=== PATIENT | male | born 1955 | race Caucasian/White ===

== ENCOUNTER 2020-05-26 14:04 | Inpatient (IN) ==
[2020-05-26 14:23] VITALS: BMI 25.8
[2020-05-26] MEDS ORDERED: DECADRON INJ PRESERVATIVE-FREE IVP ONE (14:26)
[2020-05-26] MEDS ORDERED: PROVENTIL NEB TX 0.083% 2.5MG/ 3ML NEB ONE (14:27)
[2020-05-26] MEDS ORDERED: TYLENOL 500 MG TAB EXTRA STRENGTH PO ONE ×2 (14:33→14:34)
[2020-05-26] MEDS ORDERED: DECADRON INJ ONE (14:34)
[2020-05-26] MEDS ORDERED: PROVENTIL NEB TX 0.083% 2.5MG/ 3ML ONE (14:38)
[2020-05-26 14:47] LABS: ABG BASE EXCESS 6.9 mmol/L (-2.0-2.0)
[2020-05-26 14:48] LABS: ABG ALLEN TEST POS; ABG HCO3 30.3 mmol/L (22-26)
--- NOTE | 2020-05-26 14:48 | DR.SOBA ---
HPI Time Seen Time Seen by Provider: 05/26/20 14:26 Primary Care Physician Primary Care Physician: FRANCHESCA HPI Comment HPI Comment: Patient presents from home with worsening shortness of breath. recently +COVID. Patient tested a few days ago, but was asymptomatic at the time. No result known at this time. Notes that since Friday, he has had worsen ing sob, fatigue. Notes fever to 102 at home, not responsive to Tylenol or Motrin. Decreased po intake. Notes itchy rash over body. Had empiric COVID treatment with Zpack (last dose yesterday), zinc, and Vit C. Complaints Chief Complaint:: PT. BECAME SYMPTOMATIC WITH COVID LIKE SYMTPOMS ON 05/15/20. PT. WAS SEEN IN THE ER ON 05/21/20 FOR WORSENING COVID SYMTPOMS. PT. WAS PRESCRIVED A Z-CARMEN, VITAMIN C AND ZINC. PT. IS STILL NOT FEELING BETTER. PT. C/O PERSISTENT COUGH, SHORTNESS OF BREATH, RASH TO BODY, FEVER, FATIGUE, DECREASED APPETITE. COVID-19 Coronavirus risk:travel/contact w/high risk person: Yes Has patient experienced Coronavirus symptoms: Yes Coronavirus symptoms experienced: Fever, Coughing and Shortness of Breath Source History Provided: Patient and Significant Other Mode of Arrival Mode of Arrival: Wheelchair Timing Onset of Chief Complaint: 05/15/20 PMH PMH Past Medical History: Yes Past Medical History: Diabetes, Hypertension and Hypothyroidism Past Surgical History: Yes Surgical History: Abdominal Surgery Family History History of Family Medical Conditions: Yes Family Medical History: Cancer Social History Does patient currently use any type of tobacco product: No Have you used tobacco products in the last 12 months: No Type of Tobacco Use: None Does any household member use tobacco: No Alcohol Use: None Do you use any recreational Drugs:: No Lives With: Significant Other Lives Where: Home Travel Risk Coronavirus risk:travel/contact w/high risk person: Yes Has patient experienced Coronavirus symptoms: Yes Coronavirus symptoms experienced: Fever, Coughing and Shortness of Breath Infectious screening In the last 2 months have you had wt loss of >10#?: NO Have you had fever, night sweats or hemotysis?: No Have you traveled outside the country in the last 6 months?: No Isolation: Droplet ROS Review of Systems Constitutional: See HPI, Chills, Fever, Malaise and Fatigue Respiratoy: Dry Cough Integumentary: See HPI and Rash All Other Systems: Reviewed and Negative PE Vital Signs Vitals: Temperature 99.7 F Pulse Rate 96 Respiratory Rate 21 Blood Pressure 117/61 O2 Sat by Pulse Oximetry 92 General Limitations: No Limitations General Appearance: Alert and In No Apparent Distress Head Head Exam: Normal Inspection, Atraumatic and Normocephalic Eyes Eye exam: Normal Appearance and EOMI Neck Neck Exam: Trachea Midline Chest Chest Inspection: Normal Inspection and Symmetric Chest Wall Rise Respiratory Respiratory Exam: Normal Lung Sounds Bilat Respiratory Exam: Bilateral: Clear to Auscultation Cardiovascular Cardiovascular Exam: Normal Rhythm, Tachycardia and Normal Heart Sounds Neurologic Neurological Exam: Alert and Oriented X3 Psychiatric Psychiatric Exam: Normal Affect and Normal Mood Skin Skin Exam: Rash COURSE Consultation Called: 17:10 Call Returned: 17:15 Consultation Comments: Spoke with Dr. Swan who accepts patient for admission ROR Labs Reviewed Result Diagrams: 05/26/20 14:25 05/26/20 14:25 Laboratory: WBC 8.2 X10^3/uL (3.6-10.0) 05/26/20 14:25 RBC 4.87 X10^6/uL (4.7-6.0) 05/26/20 14:25 Hgb 14.6 g/dL (13.5-18.0) 05/26/20 14:25 Hct 42.4 % (42.0-54.0) 05/26/20 14:25 MCV 87.0 fL (80.0-100.0) 05/26/20 14:25 MCH 29.9 pg (27.0-34.0) 05/26/20 14:25 MCHC 34.3 g/dL (33.0-35.0) 05/26/20 14:25 RDW 12.8 % (11.6-16.5) 05/26/20 14:25 Plt Count 211 X10^3/uL (150.0-450.0) 05/26/20 14:25 MPV 8.6 fL (7.4-11.0) 05/26/20 14:25 Neut % (Auto) 85.5 % (42.0-75.0) H 05/26/20 14:25 Lymph % (Auto) 8.7 % (21.0-51.0) L 05/26/20 14:25 [place] % (Auto) 5.5 % (0.0-13.0) 05/26/20 14:25 Eos % (Auto) 0.0 % (0.9-2.9) L 05/26/20 14:25 Baso % (Auto) 0.3 % (0.2-1.0) 05/26/20 14:25 Neut # (Auto) 7.0 x10^3/uL (2.2-4.8) H 05/26/20 14:25 Lymph # (Auto) 0.7 X10^3/uL (1.3-2.9) L 05/26/20 14:25 [place] # (Auto) 0.4 x10^3/uL (0.3-0.8) 05/26/20 14:25 Eos # (Auto) 0.0 x10^3/uL (0.0-0.2) 05/26/20 14:25 Baso # (Auto) 0.0 X10^3/uL (0.0-0.1) 05/26/20 14:25 Absolute Nucleated RBC 0.1 /100WBC 05/26/20 14:25 D-Dimer 2.74 ug/ml (0.0-0.57) H* 05/26/20 14:25 Sample Site Rr 05/26/20 14:40 ABG pH 7.510 (7.35-7.45) H 05/26/20 14:40 ABG pCO2 38.0 mmHg (35.0-45.0) 05/26/20 14:40 ABG pO2 44.0 mmHg (80.0-100.0) L* 05/26/20 14:40 ABG HCO3 30.3 mmol/L (22-26) H* 05/26/20 14:40 ABG O2 Saturation 85.0 % (90-100) L 05/26/20 14:40 ABG Base Excess 6.9 mmol/L (-2.0-2.0) H 05/26/20 14:40 Emerson Test Pos 05/26/20 14:40 A-a Gradient 58.0 mmHg 05/26/20 14:40 FiO2 21.0 05/26/20 14:40 Blood Gas Comments Pt ansley well cdn 05/26/20 14:40 Sodium 140 mmol/L (136-145) 05/26/20 14:25 Corrected Sodium 143 mmol/L (136-145) 05/26/20 14:25 Potassium 3.9 mmol/L (3.5-5.1) 05/26/20 14:25 Chloride 100 mmol/L (98-107) 05/26/20 14:25 Carbon Dioxide 31.3 mmol/L (21-32) 05/26/20 14:25 BUN 21 mg/dL (7-18) H 05/26/20 14:25 Creatinine 1.50 mg/dL (0.70-1.30) H 05/26/20 14:25 Est GFR (MDRD) Af Amer > 60 (>60) 05/26/20 14:25 Est GFR (MDRD) Non-Af 50 (>60) L 05/26/20 14:25 Glucose 240 mg/dL (65-99) H 05/26/20 14:25 Calcium 8.8 mg/dL (8.5-10.1) 05/26/20 14:25 Corrected Calcium 9.4 mg/dL (8.5-10.1) 05/26/20 14:25 Magnesium 2.1 mg/dL (1.7-2.9) 05/26/20 14:25 Total Bilirubin 0.60 mg/dL (0.2-1.0) 05/26/20 14:25 AST 64 Units/L (15-37) H 05/26/20 14:25 ALT 43 Units/L (12-78) 05/26/20 14:25 Alkaline Phosphatase 46 Units/L (46-116) 05/26/20 14:25 Creatine Kinase 1313 Units/L (39-308) H 05/26/20 14:25 CK-MB (CK-2) < 1.0 ng/mL (0-4.0) 05/26/20 14:25 CK/CKMB % Calc 0.1 % (<4) 05/26/20 14:25 Troponin I 0.03 ng/mL (0-1.5) 05/26/20 14:25 Total Protein 7.4 g/dL (6.4-8.2) 05/26/20 14:25 Albumin 3.2 g/dL (3.4-5.0) L 05/26/20 14:25 Globulin 4.2 g/dL (2.5-4.5) 05/26/20 14:25 Albumin/Globulin Ratio 0.8 Ratio (1.1-2.1) L 05/26/20 14:25 SARS-CoV-2 (PCR) Positive (NEGATIVE) A 05/26/20 14:32 XRAY X-ray Results: HISTORY COVID-19 positive, shortness of breath STUDY CTA OF THE CHEST WITH CONTRAST COMPARISON Portable chest x-ray of same day TECHNIQUE Axial CT was performed from the thoracic inlet to the upper abdomen with an arterial phase IV contrast bolus. The axial sequences are reconstructed with multiplaner reformats;volume rendered MIP and/or 3D reconstruction was generated from the original axial dataset. FINDINGS There is no evidence of pulmonary thromboembolism or acute aortic pathology. The heart size is normal. Central airway is patent. There are no pathologically enlarged central mediastinal lymph nodes. Shotty, reactive bilateral hilar lymph nodes are observed. A small hiatal hernia is demonstrated. There is no evidence of a pericardial effusion. There is been interval development of patchy, multifocal ground-glass attenuation along the bronchovascular distribution and within peripheral locations of the right and left lung. This symmetrically affects the right and left lung. There are also more organized or dense areas of consolidation identified within the dependent lung bases. Subpleural sparing is evident. There is no pleural fluid collection identified. There is generalized hepatic steatosis associated with hepatomegaly. The spleen is average size. Surgical clips are seen near the splenic hilum. No free fluid is seen within the upper abdomen. Evaluation of the osseous structures reveals no aggressive bony lesions or acute osseous abnormalities. IMPRESSION Multifocal bilateral pulmonary infiltrates suggestive of an atypical pneumonia pattern. This may be associated with a nonspecific viral or atypical organism infection, including COVID-19 in the appropriate clinical setting. No pulmonary thromboembolism or acute aortic pathology Small hiatal hernia Hepatomegaly with generalized hepatic steatosis. Radiation dose reduction was achieved through individualized adjustment of kVP and/or mA, through adaptive statistical iterative reconstruction, and/or through automated tube current modulation. Electronically signed by: FEILPE BRUMFIELD (May 26, 2020 16:31:07) EKG [place]: LAD Rhythm: ST (rate 101) ST: Normal Opioid Opioid Risk Tool Age (Claude box if 16-45): No History of Preadolescent Sexual Abuse: No Total: 0 Total Score Risk Category: Low Risk Copyright: Cooper QUINN predicting aberrant behaviors Diagnosis Discharge Problem: Pneumonia due to 2019 novel coronavirus
[2020-05-26 14:59] LABS: BASOPHILS % (AUTO) 0.3 % (0.2-1.0); HEMATOCRIT 42.4 % (42.0-54.0); HEMOGLOBIN 14.6 g/dL (13.5-18.0); LYMPHOCYTES # (AUTO) 0.7 X10^3/uL (1.3-2.9); LYMPHOCYTES % (AUTO) 8.7 % (21.0-51.0); MEAN CORPUSCULAR HEMOGLOBIN 29.9 pg (27.0-34.0); MEAN CORPUSCULAR HGB CONC 34.3 g/dL (33.0-35.0); MEAN PLATELET VOLUME 8.6 fL (7.4-11.0); MONOCYTES # (AUTO) 0.4 x10^3/uL (0.3-0.8); MONOCYTES % (AUTO) 5.5 % (0.0-13.0); NEUTROPHILS % (AUTO) 85.5 % (42.0-75.0); PLATELET COUNT 211 X10^3/uL (150.0-450.0); RED BLOOD COUNT 4.87 X10^6/uL (4.7-6.0); RED CELL DISTRIBUTION WIDTH 12.8 % (11.6-16.5); WHITE BLOOD COUNT 8.2 X10^3/uL (3.6-10.0)
[2020-05-26 15:24] LABS: BLOOD UREA NITROGEN 21 mg/dL (7-18); CALCIUM 8.8 mg/dL (8.5-10.1); CARBON DIOXIDE 31.3 mmol/L (21-32); CHLORIDE 100 mmol/L (98-107); COR NA(FOR HYPERGLY) 143 mmol/L (136-145); SODIUM 140 mmol/L (136-145); TROPONIN I 0.03 ng/mL (0-1.5); eGFR NON BLACK RACES 50 (>60)
[2020-05-26 15:25] LABS: ALANINE AMINOTRANSFERASE 43 Units/L (12-78); ALBUMIN 3.2 g/dL (3.4-5.0); ALKALINE PHOSPHATASE 46 Units/L (46-116); ASPARTATE AMINO TRANSFERASE 64 Units/L (15-37); COR CA(FOR HYPOALB) 9.4 mg/dL (8.5-10.1); CREATINE KINASE MB < 1.0 ng/mL (0-4.0); MAGNESIUM 2.1 mg/dL (1.7-2.9); TOTAL PROTEIN 7.4 g/dL (6.4-8.2)
[2020-05-26 15:26] LABS: CKMB % 0.1 % (<4)
[2020-05-26 15:27] LABS: CREATINE KINASE 1313 Units/L (39-308)
--- NOTE | 2020-05-26 15:35 | RAD ---
HISTORYSOBSTUDYCHEST, 1 VIEWCOMPARISONNovember 2019TECHNIQUEPortable chest x-rayFINDINGSThere is been interval development of multifocal patchy peribronchial and peripheral infiltrates suggestive of an atypical pneumonia pattern. Low lung volumes are observed. The pleural spaces remain grossly clear. The heart size is stable. A small hiatal hernia is noted.IMPRESSIONEvolving multifocal bilateral pulmonary infiltrates suggestive of an atypical pneumonia patternSmall hiatal herniaElectronically signed by: FELIPE BRUMFIELD (May 26, 2020 15:34:16)
[2020-05-26] MEDS ORDERED: NS 500 ML IV 500 ML IV ONE (15:44)
--- NOTE | 2020-05-26 16:32 | CT ---
HISTORYCOVID-19 positive, shortness of breathSTUDYCTA OF THE CHEST WITH CONTRASTCOMPARISONPortable chest x-ray of same dayTECHNIQUEAxial CT was performed from the thoracic inlet to the upper abdomen with an arterial phase IV contrast bolus. The axial sequences are reconstructed with multiplaner reformats;volume rendered MIP and/or 3D reconstruction was generated from the original axial dataset.FINDINGSThere is no evidence of pulmonary thromboembolism or acute aortic pathology. The heart size is normal. Central airway is patent. There are no pathologically enlarged central mediastinal lymph nodes. Shotty, reactive bilateral hilar lymph nodes are observed. A small hiatal hernia is demonstrated. There is no evidence of a pericardial effusion. There is been interval development of patchy, multifocal ground-glass attenuation along the bronchovascular distribution and within peripheral locations of the right and left lung. This symmetrically affects the right and left lung. There are also more organized or dense areas of consolidation identified within the dependent lung bases. Subpleural sparing is evident. There is no pleural fluid collection identified.There is generalized hepatic steatosis associated with hepatomegaly. The spleen is average size. Surgical clips are seen near the splenic hilum. No free fluid is seen within the upper abdomen.Evaluation of the osseous structures reveals no aggressive bony lesions or acute osseous abnormalities.IMPRESSIONMultifocal bilateral pulmonary infiltrates suggestive of an atypical pneumonia pattern. This may be associated with a nonspecific viral or atypical organism infection, including COVID-19 in the appropriate clinical setting.No pulmonary thromboembolism or acute aortic pathologySmall hiatal herniaHepatomegaly with generalized hepatic steatosis.Radiation dose reduction was achieved through individualized adjustment of kVP and/or mA, through adaptive statistical iterative reconstruction, and/or through automated tube current modulation.Electronically signed by: FELIPE BRUMFIELD (May 26, 2020 16:31:07)
[2020-05-26 17:47] LABS: BASOPHILS % (AUTO) 0.1 % (0.2-1.0); HEMATOCRIT 38.6 % (42.0-54.0); HEMOGLOBIN 13.1 g/dL (13.5-18.0); LYMPHOCYTES # (AUTO) 0.4 X10^3/uL (1.3-2.9); LYMPHOCYTES % (AUTO) 5.1 % (21.0-51.0); MEAN CORPUSCULAR HEMOGLOBIN 29.5 pg (27.0-34.0); MEAN CORPUSCULAR HGB CONC 33.9 g/dL (33.0-35.0); MEAN PLATELET VOLUME 8.2 fL (7.4-11.0); MONOCYTES # (AUTO) 0.3 x10^3/uL (0.3-0.8); NEUTROPHILS # (AUTO) 6.5 x10^3/uL (2.2-4.8); NEUTROPHILS % (AUTO) 90.8 % (42.0-75.0); PLATELET COUNT 203 X10^3/uL (150.0-450.0); RED BLOOD COUNT 4.43 X10^6/uL (4.7-6.0); RED CELL DISTRIBUTION WIDTH 12.6 % (11.6-16.5); WHITE BLOOD COUNT 7.2 X10^3/uL (3.6-10.0)
[2020-05-26 18:01] LABS: BAND NEUTROPHILS % 5 % (0-10)
[2020-05-26 18:02] LABS: ALBUMIN 2.8 g/dL (3.4-5.0); CALCIUM 8.5 mg/dL (8.5-10.1); CARBON DIOXIDE 31.8 mmol/L (21-32); COR CA(FOR HYPOALB) 9.5 mg/dL (8.5-10.1); CREATININE 1.58 mg/dL (0.70-1.30); PLATELET MORPHOLOGY COMMENT NORMAL (NORMAL); TOTAL PROTEIN 6.4 g/dL (6.4-8.2); TROPONIN I 0.04 ng/mL (0-1.5)
[2020-05-26] MEDS: NS 1000 ML 1,000 ML IV SCH (18:22)
[2020-05-26] MEDS ORDERED: DUONEB 0.5 MG/3 MG (3 mL) NEB ONE (19:25)
[2020-05-26] MEDS ORDERED: PULMICORT NEB TX 0.5 MG NEB ONE (19:25)
[2020-05-26] MEDS ORDERED: REMDESIVIR IV ONE (19:49)
[2020-05-26] MEDS ORDERED: ZINC SULFATE ONE (19:49)
[2020-05-26] MEDS ORDERED: LOVENOX INJ 30 MG SYR SC ONE (19:50)
[2020-05-26] MEDS ORDERED: NS 100 ML IV 100 ML IV ONE (19:53)
[2020-05-26] MEDS ORDERED: NS 250 ML IV 250 ML IV ONE (19:53)
[2020-05-26] MEDS ORDERED: ASCORBIC ACID INJ MULTI-DOSE VIAL IV ONE (19:54)
[2020-05-26] MEDS: ASCORBIC ACID INJ MULTI-DOSE VIAL 1,500 MG in NS 100 ML IV 100 ML IV SCH (20:01)
[2020-05-26] MEDS: PULMICORT NEB TX 0.5 MG NEB SCH (20:20)
[2020-05-26] MEDS: DUONEB 0.5 MG/3 MG (3 mL) NEB SCH (20:20)
[2020-05-26] MEDS ORDERED: PLAQUENIL PO SCH (21:00)
[2020-05-26] MEDS ORDERED: REMDESIVIR 200 MG in NS 250 ML IV 250 ML IV SCH (21:00)
[2020-05-26] MEDS ORDERED: HumuLIN R ONE (21:18)
[2020-05-26] MEDS: ZINC SULFATE PO SCH (21:22)
[2020-05-26] MEDS: LOVENOX INJ 30 MG SYR SC SCH (21:23)
[2020-05-26] MEDS: HumuLIN R SC PRN (21:23)
[2020-05-26] MEDS ORDERED: VISTARIL PO ONE (21:27)
[2020-05-26] MEDS: VISTARIL PO PRN (21:40)
[2020-05-26] MEDS ORDERED: TYLENOL 325 MG TAB PO PRN (23:17)
[2020-05-26] MEDS ORDERED: TYLENOL 325 MG TAB PO ONE (23:19)
[2020-05-26] MEDS ORDERED: ROBITUSSIN DM ONE (23:22)
[2020-05-26] MEDS: ROBITUSSIN DM PO SCH (23:36)
[2020-05-27 00:16] LABS: CKMB % 0.1 % (<4); CREATINE KINASE MB < 1.0 ng/mL (0-4.0); TROPONIN I 0.03 ng/mL (0-1.5)
[2020-05-27 00:17] LABS: CREATINE KINASE 996 Units/L (39-308)
[2020-05-27] MEDS: DUONEB 0.5 MG/3 MG (3 mL) NEB SCH ×6 (00:25→20:49)
[2020-05-27] MEDS: ASCORBIC ACID INJ MULTI-DOSE VIAL 1,500 MG in NS 100 ML IV 100 ML IV SCH ×4 (03:04→21:43)
[2020-05-27 05:13] LABS: ABG ALLEN TEST POS; ABG BASE EXCESS 3.7 mmol/L (-2.0-2.0); ABG HCO3 27.7 mmol/L (22-26)
[2020-05-27] MEDS: ROBITUSSIN DM PO SCH ×4 (05:25→23:20)
[2020-05-27 05:30] LABS: BASOPHILS % (AUTO) 0.4 % (0.2-1.0); HEMATOCRIT 38.4 % (42.0-54.0); LYMPHOCYTES # (AUTO) 0.5 X10^3/uL (1.3-2.9); LYMPHOCYTES % (AUTO) 11.3 % (21.0-51.0); MEAN CORPUSCULAR HEMOGLOBIN 29.4 pg (27.0-34.0); MEAN CORPUSCULAR VOLUME 86.6 fL (80.0-100.0); MONOCYTES # (AUTO) 0.3 x10^3/uL (0.3-0.8); MONOCYTES % (AUTO) 7.6 % (0.0-13.0); NEUTROPHILS # (AUTO) 3.6 x10^3/uL (2.2-4.8); NEUTROPHILS % (AUTO) 80.7 % (42.0-75.0); PLATELET COUNT 213 X10^3/uL (150.0-450.0); RED BLOOD COUNT 4.43 X10^6/uL (4.7-6.0); RED CELL DISTRIBUTION WIDTH 12.6 % (11.6-16.5); WHITE BLOOD COUNT 4.5 X10^3/uL (3.6-10.0)
--- NOTE | 2020-05-27 05:32 | RAD ---
HISTORYDyspneaSTUDYAP [id number]/27/2020FINDINGSThere is no change in appearance of heart, lungs or mediastinum. Bilateral patchy infiltrates are similar. No new consolidation, extrapulmonary air or large pleural effusion seen.IMPRESSIONStable chest. Persistent bilateral infiltrates consistent with atypical pneumonia.Electronically signed by: HEATH TOBIN (May 27, 2020 05:30:57)
[2020-05-27 05:38] LABS: ALBUMIN 2.7 g/dL (3.4-5.0); CALCIUM 8.7 mg/dL (8.5-10.1); CARBON DIOXIDE 28.4 mmol/L (21-32); COR CA(FOR HYPOALB) 9.7 mg/dL (8.5-10.1); CREATININE 1.52 mg/dL (0.70-1.30); TOTAL PROTEIN 6.4 g/dL (6.4-8.2)
[2020-05-27] MEDS: HumuLIN R SC PRN ×4 (05:43→20:42)
[2020-05-27] MEDS ORDERED: TRICOR TAB 160 MG PO SCH (09:00)
[2020-05-27] MEDS ORDERED: VITAMIN D (1.25MG) PO SCH (09:00)
[2020-05-27] MEDS ORDERED: VITAMIN A PO SCH (09:00)
[2020-05-27] MEDS: DECADRON TAB PO SCH (09:03)
[2020-05-27] MEDS: VISTARIL PO PRN (09:03)
[2020-05-27] MEDS: ZINC SULFATE PO SCH ×2 (09:03→20:41)
[2020-05-27] MEDS: LOVENOX INJ 30 MG SYR SC SCH ×2 (09:05→20:41)
[2020-05-27] MEDS: PULMICORT NEB TX 0.5 MG NEB SCH ×2 (09:05→20:49)
[2020-05-27] MEDS ORDERED: LR 1000 ML IV 1,000 ML IV ONE (14:05)
[2020-05-27] MEDS: COZAAR PO SCH (15:50)
[2020-05-27] MEDS: PriLOSEC PO SCH (15:50)
[2020-05-27] MEDS: SYNTHROID 112 mcg TAB PO SCH (15:51)
[2020-05-27] MEDS: ACTOS PO SCH (15:51)
[2020-05-27] MEDS ORDERED: GLUCOPHAGE ONE (16:11)
[2020-05-27] MEDS: GLUCOPHAGE PO SCH (16:21)
[2020-05-27] MEDS: NS 1000 ML 1,000 ML IV SCH (20:40)
[2020-05-27] MEDS: PATIENT'S HOME MEDICATION (Icosapent Ethyl [Vascepa] 1 gram capsule) PO SCH (20:40)
[2020-05-27] MEDS: REMDESIVIR 100 MG in NS 250 ML IV 250 ML IV SCH (20:41)
[2020-05-27] MEDS ORDERED: ZINC SULFATE PO SCH (21:00)
[2020-05-28] MEDS: DUONEB 0.5 MG/3 MG (3 mL) NEB SCH ×6 (00:20→20:50)
[2020-05-28] MEDS: VISTARIL PO PRN ×2 (02:54→22:35)
[2020-05-28] MEDS: ASCORBIC ACID INJ MULTI-DOSE VIAL 1,500 MG in NS 100 ML IV 100 ML IV SCH ×4 (03:39→20:47)
[2020-05-28] MEDS: ROBITUSSIN DM PO SCH ×3 (05:38→17:04)
[2020-05-28] MEDS: HumuLIN R SC PRN ×3 (05:38→21:09)
[2020-05-28 06:14] LABS: BASOPHILS % (AUTO) 0.2 % (0.2-1.0); HEMATOCRIT 35.9 % (42.0-54.0); HEMOGLOBIN 12.4 g/dL (13.5-18.0); LYMPHOCYTES # (AUTO) 0.6 X10^3/uL (1.3-2.9); LYMPHOCYTES % (AUTO) 7.6 % (21.0-51.0); MEAN CORPUSCULAR HEMOGLOBIN 30.3 pg (27.0-34.0); MEAN CORPUSCULAR HGB CONC 34.6 g/dL (33.0-35.0); MEAN CORPUSCULAR VOLUME 87.5 fL (80.0-100.0); MEAN PLATELET VOLUME 9.2 fL (7.4-11.0); MONOCYTES # (AUTO) 0.6 x10^3/uL (0.3-0.8); MONOCYTES % (AUTO) 8.1 % (0.0-13.0); NEUTROPHILS # (AUTO) 6.4 x10^3/uL (2.2-4.8); NEUTROPHILS % (AUTO) 84.1 % (42.0-75.0); PLATELET COUNT 251 X10^3/uL (150.0-450.0); RED CELL DISTRIBUTION WIDTH 12.8 % (11.6-16.5); WHITE BLOOD COUNT 7.6 X10^3/uL (3.6-10.0)
[2020-05-28 06:31] LABS: ALANINE AMINOTRANSFERASE 44 Units/L (12-78); ALBUMIN 2.5 g/dL (3.4-5.0); ALKALINE PHOSPHATASE 47 Units/L (46-116); ASPARTATE AMINO TRANSFERASE 38 Units/L (15-37); BLOOD UREA NITROGEN 22 mg/dL (7-18); CALCIUM 8.4 mg/dL (8.5-10.1); CARBON DIOXIDE 27.6 mmol/L (21-32); CHLORIDE 107 mmol/L (98-107); COR CA(FOR HYPOALB) 9.6 mg/dL (8.5-10.1); COR NA(FOR HYPERGLY) 150 mmol/L (136-145); CREATININE 1.41 mg/dL (0.70-1.30); SODIUM 144 mmol/L (136-145); TOTAL PROTEIN 5.9 g/dL (6.4-8.2); eGFR NON BLACK RACES 54 (>60)
[2020-05-28] MEDS: GLUCOPHAGE PO SCH ×2 (08:00→17:01)
[2020-05-28] MEDS ORDERED: GLUCOPHAGE ONE ×2 (09:17→17:02)
[2020-05-28] MEDS: ACTOS PO SCH (09:31)
[2020-05-28] MEDS: COZAAR PO SCH (09:31)
[2020-05-28] MEDS: PATIENT'S HOME MEDICATION (Icosapent Ethyl [Vascepa] 1 gram capsule) PO SCH ×2 (09:31→21:11)
[2020-05-28] MEDS: DECADRON TAB PO SCH (09:31)
[2020-05-28] MEDS: LOVENOX INJ 30 MG SYR SC SCH ×2 (09:32→20:47)
[2020-05-28] MEDS: TRICOR TAB 160 MG PO SCH (09:32)
[2020-05-28] MEDS: SYNTHROID 112 mcg TAB PO SCH (09:32)
[2020-05-28] MEDS: PriLOSEC PO SCH (09:32)
[2020-05-28] MEDS: VITAMIN A PO SCH (09:33)
[2020-05-28] MEDS: VITAMIN D3 125 mcg (5,000 UNITS) PO SCH (09:33)
[2020-05-28] MEDS: ZINC SULFATE PO SCH ×2 (09:33→20:47)
[2020-05-28] MEDS: PULMICORT NEB TX 0.5 MG NEB SCH ×3 (09:50→20:50)
[2020-05-28] MEDS ORDERED: TESSALON PERLES PO PRN (13:42)
[2020-05-28] MEDS: NS 1000 ML 1,000 ML IV SCH (18:20)
[2020-05-28] MEDS: REMDESIVIR 100 MG in NS 250 ML IV 250 ML IV SCH (22:17)
[2020-05-29] MEDS ORDERED: RESTORIL CAP 15 MG PO PRN (00:20)
[2020-05-29] MEDS: ROBITUSSIN DM PO SCH ×3 (00:22→12:01)
[2020-05-29] MEDS ORDERED: RESTORIL CAP 15 MG PO ONE (00:23)
[2020-05-29] MEDS: DUONEB 0.5 MG/3 MG (3 mL) NEB SCH ×4 (00:30→12:00)
[2020-05-29] MEDS: ASCORBIC ACID INJ MULTI-DOSE VIAL 1,500 MG in NS 100 ML IV 100 ML IV SCH ×2 (02:57→08:40)
[2020-05-29 05:14] LABS: ABG BASE EXCESS 4.2 mmol/L (-2.0-2.0); ABG HCO3 27.3 mmol/L (22-26)
[2020-05-29 05:15] LABS: ABG ALLEN TEST POS
[2020-05-29] MEDS ORDERED: CHLORASEPTIC SPRAY MT PRN (05:32)
[2020-05-29] MEDS ORDERED: ATIVAN INJ 2 MG VIAL IVP ONE (05:33)
[2020-05-29] MEDS ORDERED: ATIVAN INJ 2 MG VIAL ONE (05:36)
[2020-05-29] MEDS ORDERED: CHLORASEPTIC SPRAY MT ONE (05:49)
--- NOTE | 2020-05-29 05:55 | RAD ---
HISTORYHYPOXIASTUDYCHEST, 1 [id number]/28/2020FINDINGSThe trachea is midline. The cardiac silhouette is within normal limits. Patchy bilateral pulmonary opacities/infiltrates slightly increased compared to prior exam.. The bony thorax is unremarkable.IMPRESSIONSlight interval increase in patchy bilateral pulmonary opacities/infiltrates.Electronically signed by: Katya Rice (May 29, 2020 05:54:33)
--- NOTE | 2020-05-29 06:01 | CT ---
HISTORYhypoxia, covid 19STUDYCTA CHESTCOMPARISONNoneTECHNIQUEMultiple axial images of the chest were obtained from the thoracic inlet to the upper abdomen after the administration of IV contrast. 3D reconstructions utilizing axial MIPS imaging was performed and reviewed. Dose reduction techniques including Automated Exposure Control (AEC) and adjustment of mA and kV were utilized.FINDINGSPulmonary arteries: There is no central filling defects of the pulmonary arterial system to suggest acute pulmonary emboli.Mediastinum: Mild mediastinal and hilar adenopathy. Moderate-sized hiatal hernia. Heart size is within normal limits. No paricardial effusion The thoracic aorta is normal in its contour without evidence for aneurysmal dilatation.Lungs: Extensive bilateral ground-glass opacities throughout the lung dickinson. No pleural effusion or pneumothorax. The central airway is grossly patent.Chest wall: No axillary adenopathy.Bones: No aggressive osseus lesion or acute fracture.Upper abdomen: The visualized portions of the upper abdomen are grossly unremarkable .IMPRESSIONNo evidence of acute pulmonary emboli.Extensive bilateral patchy ground-glass opacities throughout the lung dickinson, compatible with COVID pneumonia. Other etiology differential consideration include drug toxicity and organizing pneumonia.Mild mediastinal and hilar adenopathy, likely reactive.Electronically signed by: Katya Rice (May 29, 2020 05:59:55)
[2020-05-29] MEDS ORDERED: GLUCOPHAGE ONE (06:07)
[2020-05-29 06:17] LABS: BASOPHILS % (AUTO) 0.5 % (0.2-1.0); HEMATOCRIT 36.5 % (42.0-54.0); HEMOGLOBIN 12.9 g/dL (13.5-18.0); LYMPHOCYTES % (AUTO) 9.2 % (21.0-51.0); MEAN CORPUSCULAR HEMOGLOBIN 30.7 pg (27.0-34.0); MEAN CORPUSCULAR HGB CONC 35.2 g/dL (33.0-35.0); MEAN CORPUSCULAR VOLUME 87.3 fL (80.0-100.0); MEAN PLATELET VOLUME 9.6 fL (7.4-11.0); MONOCYTES # (AUTO) 0.2 x10^3/uL (0.3-0.8); NEUTROPHILS # (AUTO) 9.3 x10^3/uL (2.2-4.8); NEUTROPHILS % (AUTO) 88.3 % (42.0-75.0); PLATELET COUNT 301 X10^3/uL (150.0-450.0); RED BLOOD COUNT 4.18 X10^6/uL (4.7-6.0); RED CELL DISTRIBUTION WIDTH 12.3 % (11.6-16.5); WHITE BLOOD COUNT 10.6 X10^3/uL (3.6-10.0)
[2020-05-29] MEDS: HumuLIN R SC PRN ×2 (06:20→12:00)
[2020-05-29] MEDS: GLUCOPHAGE PO SCH (06:20)
[2020-05-29 06:33] LABS: ALBUMIN 2.6 g/dL (3.4-5.0); ALKALINE PHOSPHATASE 67 Units/L (46-116); BLOOD UREA NITROGEN 21 mg/dL (7-18); CALCIUM 7.8 mg/dL (8.5-10.1); CARBON DIOXIDE 22.2 mmol/L (21-32); CHLORIDE 107 mmol/L (98-107); COR CA(FOR HYPOALB) 8.9 mg/dL (8.5-10.1); COR NA(FOR HYPERGLY) 148 mmol/L (136-145); CREATININE 1.19 mg/dL (0.70-1.30); SODIUM 144 mmol/L (136-145); TOTAL PROTEIN 5.9 g/dL (6.4-8.2); eGFR NON BLACK RACES > 60 (>60)
[2020-05-29 06:50] LABS: ALANINE AMINOTRANSFERASE 51 Units/L (12-78); ASPARTATE AMINO TRANSFERASE 66 Units/L (15-37)
[2020-05-29] MEDS: ACTOS PO SCH (08:40)
[2020-05-29] MEDS: COZAAR PO SCH (08:40)
[2020-05-29] MEDS: LOVENOX INJ 30 MG SYR SC SCH (08:41)
[2020-05-29] MEDS: PriLOSEC PO SCH (08:41)
[2020-05-29] MEDS: DECADRON TAB PO SCH (08:41)
[2020-05-29] MEDS: SYNTHROID 112 mcg TAB PO SCH (08:42)
[2020-05-29] MEDS: TRICOR TAB 160 MG PO SCH (08:42)
[2020-05-29] MEDS: VITAMIN D3 125 mcg (5,000 UNITS) PO SCH (08:42)
[2020-05-29] MEDS: ZINC SULFATE PO SCH (08:44)
[2020-05-29] MEDS: VITAMIN A PO SCH (08:46)
[2020-05-29] MEDS: PATIENT'S HOME MEDICATION (Icosapent Ethyl [Vascepa] 1 gram capsule) PO SCH (08:47)
[2020-05-29] MEDS: PULMICORT NEB TX 0.5 MG NEB SCH (08:50)
[2020-05-29] MEDS ORDERED: MORPHINE SULFATE INJ 4 MG IVP PRN (09:26)
[2020-05-29] MEDS ORDERED: VALIUM INJ IVP PRN (09:26)
[2020-05-29 09:54] LABS: BILIRUBIN,URINE NEGATIVE (NEGATIVE); BLOOD/HEMOGLOBIN,URINE 3+ (NEGATIVE); GLUCOSE, URINE NEGATIVE (NEGATIVE); KETONES,URINE NEGATIVE (NEGATIVE); LEUKOCYTE ESTERASE ,URINE NEGATIVE (NEGATIVE); NITRITES,URINE NEGATIVE (NEGATIVE); PROTEIN,URINE 1+ (NEGATIVE); UROBILINOGEN,URINE NORMAL (NORMAL)
[2020-05-29] MEDS ORDERED: NS IV SCH (10:00)
[2020-05-29] MEDS ORDERED: ASCORBIC ACID MULTI IV SCH (10:00)
[2020-05-29 10:05] LABS: APPEARANCE,URINE CLEAR (CLEAR); COLOR,URINE YELLOW (YELLOW); RBC,URINE 0-2 /HPF (0-3); SQUAMOUS EPITHELIAL CELL,UR RARE /HPF (NEGATIVE)
[2020-05-29 10:06] LABS: BACTERIA,URINE NEGATIVE /HPF (NEGATIVE); HYALINE CASTS, URINE RARE /LPF (NEGATIVE); MUCUS,URINE FEW /HPF (NEGATIVE)
[2020-05-29] MEDS ORDERED: NS IV NR (10:15)
[2020-05-29] MEDS ORDERED: ASCORBIC ACID MULTI IV NR (10:15)
[2020-05-29 17:14] VITALS: BP 135/72
== END 2020-05-29 17:00 | disposition short-term general hospital (02) | DRG 177 ==
LOC: ER 14:04 → ICU 17:23
PROVIDERS: ADMIT Obstetrics & Gynecology Obstetrics; ATTEND Obstetrics & Gynecology Obstetrics
DX: J12.89 Other viral pneumonia; R06.02 Shortness of breath; U07.1 COVID-19; I10 Essential (primary) hypertension; E03.8 Other specified hypothyroidism; E11.65 Type 2 diabetes mellitus with hyperglycemia; R09.02 Hypoxemia